=== PATIENT | female | born 1980 | race Caucasian/White ===

== ENCOUNTER 2020-02-15 13:35 | Emergency (ER) | payer BC ==
[~2020-02-15] VITALS: Ht 172.7 cm; Wt 65.8 kg
[~2020-02-15 13:35] MED LIST: ONDA4TAB5 SL
[2020-02-15 13:45] VITALS: BP_SYST 112
--- NOTE | 2020-02-15 13:50 | NUR ---
Patient to bed 7 to [facility] for evaluation. Side rails up. Report given to JEAN Ramirez. Addendum: 02/15/20 at 1545 by DARIELA rx of Britt and Naprosyn given
--- NOTE | 2020-02-15 13:51 | NUR ---
ER Dr. Veloz at bedside examining patient.
[2020-02-15] MEDS ORDERED: NACL 0.9% 1,000 ML IV ONE (14:00)
[2020-02-15] MEDS ORDERED: PHENAZOPYRIDINE HCL 100 MG TABLET PO ONE (14:00)
--- NOTE | 2020-02-15 14:00 | NUR ---
pt arrives from home w/ c/o left flank 12/07. Pt has hx of hydrohephrosis. Arrives w/ c/o urinary urgency. UA collected and sent to the lab
[2020-02-15 14:24] LABS: BILIRUBIN,URINE NEGATIVE (NEGATIVE); BLOOD, URINE 3+ (NEGATIVE); CLARITY/URINE TURBID (CLEAR); COLOR,URINE YELLOW (YELLOW); GLUCOSE,URINE NEGATIVE (NEGATIVE); KETONES,URINE TRACE (NEGATIVE); LEUKOCYTE ESTERASE ,URINE 2+ (NEGATIVE); NITRITE, URINE POSITIVE (NEGATIVE); PH,URINE 5.5 (5.0-8.0); PROTEIN URINE 2+ (NEGATIVE); UROBILINOGEN,URINE 0.2 (0.2-1.0)
--- NOTE | 2020-02-15 14:25 | NUR ---
# 22 gauge angiocath placed to LAC. Use of asceptic technique. Opsite placed over site. Blood return noted. Blood for lab drawn from site. Flushed with 10 cc of normal saline. No evidence of infiltration noted. Patient tolerated well.
[2020-02-15 14:29] LABS: BACTERIA,URINE MANY /HPF (None Seen); MUCUS,URINE 1+ /LPF (None Seen); RBC,URINE 20-50 /HPF (0-3); WBC,URINE 20-50 /HPF (0-3)
--- NOTE | 2020-02-15 14:30 | NUR ---
medicated the pt w/ pyridium and NS 1 liter
--- NOTE | 2020-02-15 14:38 | NUR ---
Patient transported to radiology via gurney, accompanied by US tech.
[2020-02-15 14:46] LABS: BASOPHILS # (AUTO) 0.1 K/uL (0.0-0.2); BASOPHILS % (AUTO) 0.5 % (0.0-2.0); EOSINOPHILS % (AUTO) 0.4 % (0.0-4.0); HEMATOCRIT 38.3 % (36-48); LYMPHOCYTES # (AUTO) 1.8 K/uL (1.0-5.5); MEAN CORPUSCULAR HEMOGLOBIN 32 pg (27-31); MEAN CORPUSCULAR HGB CONC 34 % (32-36); MEAN CORPUSCULAR VOLUME 93 fL (79.0-98.0); MONOCYTES # (AUTO) 1.2 K/uL (0.0-1.0); MONOCYTES % (AUTO) 9.4 % (1.7-9.3); NEUTROPHILS # (AUTO) 9.5 K/uL (1.8-7.7); NEUTROPHILS % (AUTO) 75.7 % (40.0-70.0); PLATELET COUNT (AUTO) 255 K/uL (130-430); RED BLOOD CELL COUNT(AUTO) 4.12 MIL/uL (4.2-6.2); WHITE BLOOD COUNT (AUTO) 12.5 K/uL (4.8-10.8)
--- NOTE | 2020-02-15 14:50 | NUR ---
pt returned from US.
[2020-02-15 14:52] LABS: CALCIUM 8.9 mg/dL (8.4-11.0); CREATININE 0.7 mg/dL (0.55-1.30)
[2020-02-15 14:55] LABS: PROTHROMBIN TIME 9.9 SECS (9.5-12.5)
[2020-02-15 14:57] LABS: ALBUMIN 3.8 g/dL (3.4-4.8); TOTAL BILIRUBIN 0.4 mg/dL (0.0-1.0)
[2020-02-15] MEDS ORDERED: KETOROLAC TROMETHAMINE 30 MG VIAL IVP ONE (15:00)
[2020-02-15] MEDS ORDERED: cefTRIAXone 1 GM in D5W 50 ML IV ONE (15:30)
[2020-02-15 15:42] VITALS: BP_SYST 112
--- NOTE | 2020-02-15 15:43 | NUR ---
Patient given written and verbal discharge instructions and verbalizes understanding. ER MD discussed with patient the results and treatment provided. Patient in stable condition. ID arm band removed. IV catheter removed intact and dressing applied, no active bleeding. Rx of Kelfex and Pyridium given. Patient educated on pain management and to follow up with PMD. Pain Scale 3/10. Opportunity for questions provided and answered. Medication side effect fact sheet provided.
[2020-02-15] MEDS ORDERED: cefTRIAXone 1 GM VIAL ONE (15:50)
== END 2020-02-15 15:43 | disposition home or self-care (01) ==
LOC: SED 13:35
DX: N39.0 Urinary tract infection, site not specified (principal); R10.9 Unspecified abdominal pain; E27.1 Primary adrenocortical insufficiency; J45.909 Unspecified asthma, uncomplicated; Z88.2 Allergy status to sulfonamides
CPT/HCPCS: 36415; 76770; 80053; 81000; 81025; 85025; 85610; 85730; 87086; 96361; 96365; 96375; 99284; J0696; J1885; J7030; 87186-TC

== ENCOUNTER 2020-03-23 16:48 | Emergency (ER) | payer BC ==
[~2020-03-23] VITALS: Ht 172.7 cm; Wt 65.8 kg
[2020-03-23 17:13] VITALS: BP_SYST 155
--- NOTE | 2020-03-23 17:13 | NUR ---
Patient to ER bed 03 to gown for evaluation. Side rails up.
--- NOTE | 2020-03-23 17:15 | NUR ---
Patient arrived in the ED c/o weakness, dizziness, and pallor. Patient stated her BS is high. Denied any chest pain or shortness of breath. Denied any fevers, chills, nausea or vomiting. Patient is alert and oriented x4, respirations even and unlabored, speaking in full sentences, and ambulating with a steady gait. VSS, pain level 0/10. Informed of the approximate wait time. Instructed to notify ED staff for any changes in condition or worsening of symptoms while waiting to be seen by an ED provider. Patient verbalized understanding.
--- NOTE | 2020-03-23 17:33 | NUR ---
ER Dr. Sullivan at bedside examining patient.
[2020-03-23] MEDS ORDERED: NACL 0.9% 1,000 ML IV ONE (17:45)
--- NOTE | 2020-03-23 17:59 | NUR ---
URINE COLLECTED AND SENT TO THE LAB
--- NOTE | 2020-03-23 18:25 | NUR ---
# 22 gauge angiocath placed to RAC. Use of asceptic technique. Opsite placed over site. Blood return noted. Blood for lab drawn from site. Flushed with 10 cc of normal saline. No evidence of infiltration noted. Patient tolerated well.
--- NOTE | 2020-03-23 18:27 | NUR ---
NS 1l currently infusing per MD order.
[2020-03-23 18:30] LABS: BASOPHILS % (AUTO) 0.5 % (0.0-2.0); EOSINOPHILS # (AUTO) 0.1 K/uL (0.0-0.4); EOSINOPHILS % (AUTO) 0.7 % (0.0-4.0); HEMATOCRIT 41.5 % (36-48); LYMPHOCYTES # (AUTO) 3.4 K/uL (1.0-5.5); LYMPHOCYTES % (AUTO) 37.8 % (20.5-51.5); MEAN CORPUSCULAR HEMOGLOBIN 32 pg (27-31); MEAN CORPUSCULAR HGB CONC 34 % (32-36); MEAN CORPUSCULAR VOLUME 93 fL (79.0-98.0); MONOCYTES % (AUTO) 10.9 % (1.7-9.3); NEUTROPHILS # (AUTO) 4.5 K/uL (1.8-7.7); NEUTROPHILS % (AUTO) 50.1 % (40.0-70.0); PLATELET COUNT (AUTO) 240 K/uL (130-430); RED BLOOD CELL COUNT(AUTO) 4.45 MIL/uL (4.2-6.2); RED CELL DISTRIBUTION WIDTH 12.8 % (9.0-15.0)
[2020-03-23 18:45] LABS: ANION GAP 8 (5-15); CALCIUM 8.8 mg/dL (8.4-11.0); CHLORIDE 104 mmol/L (98-107); GLUCOSE 98 mg/dL (70-99); POTASSIUM 3.6 mmol/L (3.5-5.1); SODIUM SERUM 138 mmol/L (136-145); UREA NITROGEN, BLOOD 14 mg/dL (8-21)
[2020-03-23 18:47] LABS: PROTHROMBIN TIME 10.1 SECS (9.5-12.5)
[2020-03-23 18:49] LABS: GFR AFRICAN AMERICAN 90 mL/min (>90)
[2020-03-23 18:58] LABS: BILIRUBIN,URINE NEGATIVE (NEGATIVE); BLOOD, URINE NEGATIVE (NEGATIVE); CLARITY/URINE CLEAR (CLEAR); COLOR,URINE YELLOW (YELLOW); GLUCOSE,URINE NEGATIVE (NEGATIVE); KETONES,URINE NEGATIVE (NEGATIVE); LEUKOCYTE ESTERASE ,URINE NEGATIVE (NEGATIVE); NITRITE, URINE NEGATIVE (NEGATIVE); PH,URINE 6.5 (5.0-8.0); PROTEIN URINE NEGATIVE (NEGATIVE); UROBILINOGEN,URINE 0.2 (0.2-1.0)
[2020-03-23 19:09] VITALS: BP_SYST 155
[2020-03-23 19:12] LABS: ALANINE AMINOTRANSFERASE 19 U/L (12-78); ALBUMIN 4.1 g/dL (3.4-4.8); ASPARTATE AMINOTRANSFERASE 12 U/L (10-37); TOTAL BILIRUBIN 0.3 mg/dL (0.0-1.0)
[2020-03-23 19:13] LABS: ALCOHOL, BLOOD < 3 mg/dL (<10)
[2020-03-23 19:22] LABS: BARBITURATE, URINE NEGATIVE (NEG <=200); BENZODIAZEPINE, URINE NEGATIVE (NEG <=150); CANNABINOID, URINE POSITIVE (NEG <=50); COCAINE, URINE NEGATIVE (NEG <=150); METHAMPHETAMINES SCREEN,URINE NEGATIVE (NEG <=500); OPIATE, URINE NEGATIVE (NEG <=100); PHENCYCLIDINE SCREEN,URINE NEGATIVE (NEG <=25); UR TRICYCLIC ANTIDEPRESSANTS NEGATIVE (NEG <=300); URINE AMPHETAMINE NEGATIVE (NEG <=500); URINE METHADONE NEGATIVE (NEG <=200); URINE OXYCODONE SCREEN NEGATIVE (NEG <=100); URINE PROPOXYPHENE SCREEN NEGATIVE (NEG <=300)
== END 2020-03-23 19:09 | disposition home or self-care (01) ==
LOC: SED 16:48
DX: R53.1 Weakness (principal); J45.909 Unspecified asthma, uncomplicated; N28.9 Disorder of kidney and ureter, unspecified; F41.9 Anxiety disorder, unspecified; Z87.442 Personal history of urinary calculi; Z88.2 Allergy status to sulfonamides
CPT/HCPCS: 36415; 80053; 80307; 81003; 81025; 82962; 83605; 83735; 83880; 84439; 84484; 85025; 85610; 87040; 93005; 96360; 99284; G0482; J7030

== ENCOUNTER 2021-05-22 16:47 | Emergency (ER) | payer BC ==
[~2021-05-22] VITALS: Ht 172.7 cm; Wt 70.3 kg
[2021-05-22 16:55] VITALS: BP_SYST 126
--- NOTE | 2021-05-22 16:55 | NUR ---
Placed in room 4 . Placed on gym instructor, blood pressure machine and pulse oximeter. To gown for exam. Side rails up. Report given to JEAN PAZ.
--- NOTE | 2021-05-22 17:28 | NUR ---
patient to ed at this time with c/o of low blood sugar and cough. patient states that she has a non productive cough. patient also states she is on steriod therapy from [facility]. patient to rest room to collect urine specimen.
[2021-05-22] MEDS: MAGNESIUM SULFATE 50 ML IV ONE (18:10)
--- NOTE | 2021-05-22 18:11 | NUR ---
magnesium citrate up and infusing at 50ml/hr
--- NOTE | 2021-05-22 18:40 | NUR ---
patient called staff to the bedside. patient appears to be anxious and has c/o difficulty breathing. patient has rapid heart rate at this time in the 140's. patient shaking and hands b/l appears stiff. patient states she wants the magnesium off due to it making her heart rate elevated. patient speaking very rude to MD. boundaries set at this time and security notified. patient hostile and agitated. MD at bedside with RN . patient given water. Will continue to monitor patient. left room once patient was more calm. patient denies chest pain.
[2021-05-22 18:44] LABS: BASOPHILS % (AUTO) 0.4 % (0.0-2.0); EOSINOPHILS % (AUTO) 0.4 % (0.0-4.0); HEMATOCRIT 41.1 % (36-48); HEMOGLOBIN 14.1 g/dL (12.0-16.0); LYMPHOCYTES # (AUTO) 2.2 K/uL (1.0-5.5); LYMPHOCYTES % (AUTO) 24.5 % (20.5-51.5); MEAN CORPUSCULAR HEMOGLOBIN 31 pg (27-31); MEAN CORPUSCULAR HGB CONC 34 % (32-36); MEAN CORPUSCULAR VOLUME 91 fL (79.0-98.0); MONOCYTES # (AUTO) 0.9 K/uL (0.0-1.0); MONOCYTES % (AUTO) 10.3 % (1.7-9.3); NEUTROPHILS # (AUTO) 5.9 K/uL (1.8-7.7); NEUTROPHILS % (AUTO) 64.4 % (40.0-70.0); PLATELET COUNT (AUTO) 247 K/uL (130-430); RED BLOOD CELL COUNT(AUTO) 4.53 MIL/uL (4.2-6.2); RED CELL DISTRIBUTION WIDTH 13.3 % (9.0-15.0); WHITE BLOOD COUNT (AUTO) 9.1 K/uL (4.8-10.8)
[2021-05-22 18:46] LABS: BILIRUBIN,URINE NEGATIVE (NEGATIVE); BLOOD, URINE 2+ (NEGATIVE); COLOR,URINE YELLOW (YELLOW); GLUCOSE,URINE NEGATIVE (NEGATIVE); KETONES,URINE TRACE (NEGATIVE); LEUKOCYTE ESTERASE ,URINE NEGATIVE (NEGATIVE); NITRITE, URINE NEGATIVE (NEGATIVE); PH,URINE 5.5 (5.0-8.0); PROTEIN URINE NEGATIVE (NEGATIVE); UROBILINOGEN,URINE 0.2 (0.2-1.0)
--- NOTE | 2021-05-22 19:09 | NUR ---
In room with patient at this time to address comfort level. patient relaxed and laying in bed. HR 80's and regular. patient verbalized less anxiety at this time.
[2021-05-22 19:14] LABS: CLARITY/URINE SLIGHTLY HAZY (CLEAR)
--- NOTE | 2021-05-22 19:15 | NUR ---
report to Qing PENA
[2021-05-22 19:18] LABS: BACTERIA,URINE FEW /HPF (None Seen); RBC,URINE 0-3 /HPF (0-3); WBC,URINE 0-3 /HPF (0-3)
[2021-05-22 19:19] LABS: CALCIUM OXALATE CRYSTALS,UR 50-70 /HPF (None Seen); MUCUS,URINE 2+ /LPF (None Seen)
[2021-05-22 19:23] LABS: SODIUM SERUM 142 mmol/L (136-145)
[2021-05-22 19:24] LABS: ALANINE AMINOTRANSFERASE 21 U/L (12-78); ALBUMIN 3.8 g/dL (3.4-4.8); ANION GAP 16 (5-15); ASPARTATE AMINOTRANSFERASE 15 U/L (10-37); CALCIUM 8.9 mg/dL (8.4-11.0); CHLORIDE 106 mmol/L (98-107); CREATININE 0.76 mg/dL (0.55-1.30); GFR AFRICAN AMERICAN 108 mL/min (>90); GLUCOSE 102 mg/dL (70-99); TOTAL BILIRUBIN 0.1 mg/dL (0.0-1.0); UREA NITROGEN, BLOOD 9 mg/dL (8-21)
--- NOTE | 2021-05-22 19:27 | NUR ---
received report from alma green
--- NOTE | 2021-05-22 19:36 | NUR ---
Note ranjan in EDM - 05/22/21 at 1942 by MALIHA SPOKE TO PT, SHE STATES SHE IS HAVING TIGHTNESS TO HER CHEST AND FEELS SOB, STATES NONPRODUCTIVE COUGH. HAVING 6/10 BODY PAIN, FEELS NAUSEATED BUT DENIES ANY VOMITING. PT REMAINS ON MONITOR. BED IN LOWEST POSITION, PT SITTING AT SIDE OF BEDSIDE. WILL CONTINUETO MONITOR PT
[2021-05-22 19:38] LABS: ACETONE, SERUM NEGATIVE (NEGATIVE)
--- NOTE | 2021-05-22 19:43 | NUR ---
SPOKE TO PT, SHE STATES SHE IS HAVING TIGHTNESS TO HER CHEST AND FEELS SOB, STATES NONPRODUCTIVE COUGH. HAVING 6/10 BODY PAIN, FEELS NAUSEATED BUT DENIES ANY VOMITING. PT REMAINS ON MONITOR. BED IN LOWEST POSITION, PT SITTING AT SIDE OF BEDSIDE. WILL CONTINUE TO MONITOR PT.
--- NOTE | 2021-05-22 19:56 | NUR ---
MD AT BEDSIDE SPEAKING WITH PT
[2021-05-22] MEDS ORDERED: POTA20TA83 PO (20:00)
[2021-05-22] MEDS: HYDROCORTISONE SOD SUCC 100 MG/2 ML VIAL IVP ONE (20:07)
--- NOTE | 2021-05-22 20:08 | NUR ---
PT REQUESTING COPIES OF HER LABS, JC EL STATED OK TO PROVIDE PT WITH COPIES
[2021-05-22 20:11] VITALS: BP_SYST 117
--- NOTE | 2021-05-22 20:17 | NUR ---
WENT TO GIVE PT COPIES OF LABS SHE WAS REQUESTED AND DISCHARGE PAPERS, PT APPARENTLY WALKED OUT BEFORE RECEIVING PAPERWORK AND DISCHARGE PAPERS.
== END 2021-05-22 20:17 | disposition home or self-care (01) ==
LOC: SED 16:47
DX: R06.02 Shortness of breath (principal); E87.6 Hypokalemia; F41.9 Anxiety disorder, unspecified; Z88.2 Allergy status to sulfonamides; Z79.899 Other long term (current) drug therapy
CPT/HCPCS: 36415; 71045; 80053; 81000; 81025; 82009; 85025; 96365; 96366; 96375; 99284; J1720; J3475